=== PATIENT | male | born 1935 | race Caucasian/White ===

== ENCOUNTER 2023-03-23 19:24 | Inpatient (IN) | payer MEDICARE ==
[2023-03-23] MEDS ORDERED: FLU VACC QS2023(65UP)/MF59C/PF 60 MCG/0.5 ML SYRINGE IM ONE (21:30)
[2023-03-23] MEDS ORDERED: Dextrose 50% Abboject 50 ML SYRINGE SLOW IVP PRN (23:22)
[2023-03-23] MEDS ORDERED: Dextrose 5% in Water 1,000 ML IV PRN (23:22)
[2023-03-23] MEDS ORDERED: Glucagon 1 MG/ML KIT IM PRN (23:22)
[2023-03-23] MEDS ORDERED: HumaLOG 300 UNITS/3 ML VIAL SC PRN (23:22)
[2023-03-23] MEDS ORDERED: Potassium Chloride 20 MEQ TAB PO SCH (23:30)
[2023-03-23] MEDS ORDERED: Furosemide 40 MG/4 ML VIAL SLOW IVP SCH (23:30)
[2023-03-24 05:51] LABS: Hematocrit 22.4 % (38.8-50.0); Hemoglobin 7.3 g/dL (13.5-17.5); Mean Corpuscular HGB CONC 32.6 g/dL (32.0-36.0); Mean Corpuscular Hemoglobin 32.3 pg (27.0-33.0); Mean Corpuscular Volume 99.1 fl (81.2-95.1); Mean Platelet Volume 11.1 fl (7.4-10.4); Platelet Count 171 10x3/uL (150-450); RBC Distribution Width 21.2 % (11.5-14.5); Red Blood Cell (RBC) Count 2.26 10x6/uL (4.32-5.72); White Blood Cell (WBC) Count 3.3 10x3/uL (3.5-10.5)
[2023-03-24 05:57] LABS: Anion Gap 13 mmol/L (10-20); BUN (Urea Nitrogen) 28 mg/dL (8.4-25.7); Calc. Creatinine Clearance 82 mL/min (70-130); Calcium 8.4 mg/dL (7.8-10.44); Carbon Dioxide 30 mmol/L (23-31); Chloride 103 mmol/L (98-107); Estimated GFR 78; Glucose 131 mg/dL (83-110); Magnesium 1.7 mg/dL (1.6-2.6); Potassium 3.5 mmol/L (3.5-5.1); Sodium 142 mmol/L (136-145)
[2023-03-24 06:02] LABS: MDiff Complete? YES
[2023-03-24 06:11] LABS: Phosphorus 4.4 mg/dL (2.3-4.7)
[2023-03-24] MEDS: Furosemide 40 MG/4 ML VIAL SLOW IVP SCH ×2 (06:28→15:23)
[2023-03-24 07:02] LABS: Platelet Adequacy Comment Appears Adequate
[2023-03-24 07:03] LABS: Anisocytosis SLIGHT = 6-15 cells (100X) (0-5/hpf)
[2023-03-24 07:04] LABS: Macrocytosis SLIGHT = 6-15 cells (100X) (0-5/hpf); Microcytosis SLIGHT = 6-15 cells (100X) (0-5/hpf)
[2023-03-24 07:06] LABS: Band 2 % (5-11); Eosinophils 14 % (0-10); Lymphocytes 48 % (21-51); Monocytes 27 % (0-10); Neutrophil 9 % (42-75)
[2023-03-24] MEDS: Lisinopril 10 MG TAB PO SCH (08:40)
[2023-03-24] MEDS ORDERED: Metoprolol Tartrate 25 MG TAB PO SCH (09:00)
[2023-03-24] MEDS ORDERED: Magnesium Sulfate 4 GM in Sodium Chloride 0.9% 250 ML 250 ML IVPB SCH (09:00)
[2023-03-24] MEDS ORDERED: Calcitriol 0.25 MCG CAP PO SCH (09:00)
[2023-03-24] MEDS: Magnesium 2 GM/50 ML(in water) 2 GM in Premix 1 BAG IVPB SCH ×2 (11:57→14:06)
[2023-03-24] MEDS: Empagliflozin 10 MG TAB PO SCH (12:05)
[2023-03-24] MEDS: Acetaminophen 325 MG TAB PO PRN ×2 (16:49→21:47)
[2023-03-24] MEDS ORDERED: Carvedilol 6.25 MG TAB PO SCH (17:00)
[2023-03-24] MEDS: Terazosin HCl 1 MG CAP PO SCH (21:38)
[2023-03-24] MEDS ORDERED: Sodium Chloride 0.65% Nasal 44 ML BOT EA NARE PRN (23:12)
[2023-03-25 04:05] LABS: Hematocrit 20.1 % (38.8-50.0); Hemoglobin 6.6 g/dL (13.5-17.5); Platelet Count 154 10x3/uL (150-450)
[2023-03-25 04:07] LABS: Anion Gap 14 mmol/L (10-20); BUN (Urea Nitrogen) 31 mg/dL (8.4-25.7); Calc. Creatinine Clearance 75 mL/min (70-130); Carbon Dioxide 27 mmol/L (23-31); Chloride 101 mmol/L (98-107); Estimated GFR 72; Glucose 135 mg/dL (83-110); Magnesium 2.3 mg/dL (1.6-2.6); Potassium 3.6 mmol/L (3.5-5.1); Sodium 138 mmol/L (136-145)
[2023-03-25] MEDS: Furosemide 40 MG/4 ML VIAL SLOW IVP SCH ×2 (05:28→16:28)
[2023-03-25 08:04] LABS: Iron 33 ug/dL (65-175); Iron Binding Capacity, Total 260 mcg/dL (261-462)
[2023-03-25] MEDS: Lisinopril 10 MG TAB PO SCH (08:40)
[2023-03-25] MEDS: Empagliflozin 10 MG TAB PO SCH (08:40)
[2023-03-25] MEDS: Pantoprazole 40 MG VIAL IVP SCH ×3 (08:40→22:19)
[2023-03-25] MEDS: Folic Acid 1 MG TAB PO SCH (08:40)
[2023-03-25] MEDS: Potassium Chloride 20 MEQ TAB PO SCH (08:40)
[2023-03-25] MEDS ORDERED: Iron, Sodium Ferric Gluconate 125 MG in Sodium Chloride 0.9% 100 ML IVPB SCH (11:00)
[2023-03-25] MEDS: Terazosin HCl 1 MG CAP PO SCH ×2 (22:12→22:19)
[2023-03-26 03:40] VITALS: BMI 29.1
[2023-03-26] MEDS: Furosemide 40 MG/4 ML VIAL SLOW IVP SCH ×2 (05:58→14:29)
[2023-03-26] MEDS: Lisinopril 10 MG TAB PO SCH (08:55)
[2023-03-26] MEDS: Potassium Chloride 20 MEQ TAB PO SCH (08:55)
[2023-03-26] MEDS: Pantoprazole 40 MG VIAL IVP SCH ×2 (09:54→20:56)
[2023-03-26] MEDS: Folic Acid 1 MG TAB PO SCH (09:55)
[2023-03-26] MEDS: Empagliflozin 10 MG TAB PO SCH (09:55)
[2023-03-26] MEDS ORDERED: IRON SUCROSE COMPLEX 100 MG/5 ML SLOW IVP SCH (10:00)
[2023-03-26] MEDS ORDERED: Iron, Sodium Ferric Gluconate 125 MG in Sodium Chloride 0.9% 100 ML IVPB SCH (10:00)
[2023-03-26] MEDS: Terazosin HCl 1 MG CAP PO SCH (20:56)
[2023-03-27 04:45] LABS: Anion Gap 15 mmol/L (10-20); BUN (Urea Nitrogen) 29 mg/dL (8.4-25.7); Calc. Creatinine Clearance 84 mL/min (70-130); Calcium 8.3 mg/dL (7.8-10.44); Carbon Dioxide 28 mmol/L (23-31); Chloride 102 mmol/L (98-107); Estimated GFR 83; Glucose 120 mg/dL (83-110); Potassium 4.1 mmol/L (3.5-5.1); Sodium 141 mmol/L (136-145)
[2023-03-27 04:46] LABS: Hematocrit 26.7 % (38.8-50.0); Hemoglobin 8.7 g/dL (13.5-17.5); Mean Corpuscular HGB CONC 32.6 g/dL (32.0-36.0); Mean Corpuscular Hemoglobin 30.4 pg (27.0-33.0); Mean Corpuscular Volume 93.4 fl (81.2-95.1); Platelet Count 176 10x3/uL (150-450); Red Blood Cell (RBC) Count 2.86 10x6/uL (4.32-5.72); White Blood Cell (WBC) Count 2.8 10x3/uL (3.5-10.5)
[2023-03-27 04:58] LABS: MDiff Complete? YES
[2023-03-27 06:00] LABS: Band 1 % (5-11); Eosinophils 10 % (0-10); Lymphocytes 50 % (21-51); Monocytes 23 % (0-10); Neutrophil 16 % (42-75)
[2023-03-27 06:04] LABS: Anisocytosis SLIGHT = 6-15 cells (100X) (0-5/hpf); Macrocytosis SLIGHT = 6-15 cells (100X) (0-5/hpf); Microcytosis SLIGHT = 6-15 cells (100X) (0-5/hpf)
[2023-03-27 06:05] LABS: Platelet Adequacy Comment Appears Adequate
[2023-03-27] MEDS: Furosemide 40 MG/4 ML VIAL SLOW IVP SCH ×2 (06:44→14:16)
[2023-03-27] MEDS: Potassium Chloride 20 MEQ TAB PO SCH (08:35)
[2023-03-27] MEDS: Lisinopril 10 MG TAB PO SCH (08:35)
[2023-03-27] MEDS: Folic Acid 1 MG TAB PO SCH (08:35)
[2023-03-27] MEDS: Pantoprazole 40 MG VIAL IVP SCH (08:35)
[2023-03-27] MEDS: Empagliflozin 10 MG TAB PO SCH (08:36)
[2023-03-27] MEDS ORDERED: PHENYLEPHRINE-NS 100 MCG/ML 10 ML SYRINGE ONE (11:48)
[2023-03-27] MEDS ORDERED: PROPOFOL 20 ML ONE (11:48)
[2023-03-27] MEDS ORDERED: Lidocaine 2% MPF 10 ML AMP (For Epidural Use) ONE (11:50)
[2023-03-27] MEDS: Acetaminophen 325 MG TAB PO PRN (14:17)
[2023-03-27 16:53] VITALS: BP 146/79; TEMP 98.2
== END 2023-03-27 16:40 | disposition home or self-care (01) | DRG 811 ==
LOC: CSHTELE 20:40 → INTOOBSV 20:40 → OBSVTOIN 03-25 07:10
PROVIDERS: ADMIT Family Medicine; ATTEND Hospitalist
PROC: 30233N1 Transfusion of Nonautologous Red Blood Cells into Peripheral Vein, Percutaneous Approach (ICD-10-PCS; 2023-03-25)
PROC: 0DJ08ZZ Inspection of Upper Intestinal Tract, Via Natural or Artificial Opening Endoscopic (ICD-10-PCS; principal; 2023-03-27)
DX: D62 Acute posthemorrhagic anemia (principal); I50.23 Acute on chronic systolic (congestive) heart failure; C91.10 Chronic lymphocytic leukemia of B-cell type not having achieved remission; I48.11 Longstanding persistent atrial fibrillation; K92.1 Melena; I11.0 Hypertensive heart disease with heart failure; E11.9 Type 2 diabetes mellitus without complications; N40.1 Benign prostatic hyperplasia with lower urinary tract symptoms; R39.15 Urgency of urination; E78.5 Hyperlipidemia, unspecified; I35.0 Nonrheumatic aortic (valve) stenosis; D50.9 Iron deficiency anemia, unspecified; G47.33 Obstructive sleep apnea (adult) (pediatric); Z79.84 Long term (current) use of oral hypoglycemic drugs; Z79.899 Other long term (current) drug therapy; Z83.3 Family history of diabetes mellitus; Z86.39 Personal history of other endocrine, nutritional and metabolic disease
CPT/HCPCS: 36415; 36416; 36430; 80048; 82274; 83540; 83550; 83735; 84100; 84443; 85014; 85018; 85025; 85049; 86850; 86900; 86901; 93005; 93010; 93306; 94760; 96372; 96374; 96375; 96376; C9113; G0378; J1650; J1940; J2704; J2916; J3475; J3490; P9016

== ENCOUNTER 2023-06-04 14:41 | Inpatient (IN) | payer MEDICARE ==
[2023-06-04 15:57] LABS: Hematocrit 24.5 % (38.8-50.0); Mean Corpuscular HGB CONC 32.7 g/dL (32.0-36.0); Mean Corpuscular Hemoglobin 32.3 pg (27.0-33.0); Mean Corpuscular Volume 98.8 fl (81.2-95.1); Mean Platelet Volume 11.1 fl (7.4-10.4); Platelet Count 278 10x3/uL (150-450); RBC Distribution Width 16.6 % (11.5-14.5); Red Blood Cell (RBC) Count 2.48 10x6/uL (4.32-5.72); White Blood Cell (WBC) Count 5.2 10x3/uL (3.5-10.5)
[2023-06-04 16:00] LABS: ALT (SGPT) 9 U/L (8-55); AST (SGOT) 11 U/L (5-34); Albumin 2.9 g/dL (3.4-4.8); Alkaline Phosphatase 116 U/L (40-110); Anion Gap 10 mmol/L (10-20); BUN (Urea Nitrogen) 19 mg/dL (8.4-25.7); Bilirubin, Total 0.9 mg/dL (0.2-1.2); Calc. Creatinine Clearance 0 mL/min (70-130); Carbon Dioxide 30 mmol/L (23-31); Chloride 101 mmol/L (98-107); Estimated GFR 85; Glucose 126 mg/dL (83-110); Potassium 3.8 mmol/L (3.5-5.1); Protein, Total 5.9 g/dL (5.8-8.1); Sodium 137 mmol/L (136-145)
[2023-06-04] MEDS ORDERED: Cefepime 2 GM VIAL ONE (16:15)
[2023-06-04 16:19] LABS: MDiff Complete? YES
[2023-06-04 17:45] LABS: Eosinophils 1 % (0-10); Lymphocytes 31 % (21-51); Monocytes 13 % (0-10); Neutrophil 50 % (42-75); Reactive Lymphocytes 1 % (0-10)
[2023-06-04 17:49] LABS: Anisocytosis SLIGHT = 6-15 cells (100X) (0-5/hpf); Hypochromia SLIGHT = 6-15 cells (100X) (0-5/hpf); Microcytosis SLIGHT = 6-15 cells (100X) (0-5/hpf); Poikilocytosis SLIGHT = 6-15 cells (100X) (0-5/hpf); Polychromasia SLIGHT = 2-3 cells (100X) (0-2/hpf); Schistocytes SLIGHT = 2-5 cells (100X) (0-1/hpf); Tear Drops SLIGHT = 2-5 cells (100X) (0-1/hpf)
[2023-06-04 17:50] LABS: Platelet Adequacy Comment Appears Adequate; Reflex for Review?? YES; Smudge Cells SLIGHT; Toxic Granulation SLIGHT; Vacuoles SLIGHT
[2023-06-04] MEDS ORDERED: Ketorolac Tromethamine 30 MG (1 mL) VIAL ONE ×2 (19:06)
[2023-06-04] MEDS ORDERED: Dextrose 50% Abboject 50 ML SYRINGE SLOW IVP PRN (21:27)
[2023-06-04] MEDS ORDERED: Dextrose 5% in Water 1,000 ML IV PRN (21:27)
[2023-06-04] MEDS ORDERED: Glucagon 1 MG/ML KIT IM PRN (21:27)
[2023-06-04] MEDS ORDERED: HYDROcodone/Acetaminophen 5/325 mg Tablet PO PRN (21:28)
[2023-06-04] MEDS ORDERED: Senokot S 8.6-50 MG TAB PO PRN (21:28)
[2023-06-04] MEDS ORDERED: Ondansetron PF 4 MG/2 ML Vial IVP PRN (21:28)
[2023-06-04] MEDS ORDERED: Zolpidem Tartrate 5 MG TAB PO PRN (21:28)
[2023-06-04] MEDS: Vancomycin 1.5 GRAM/300 ML BAG 1.5 GM in Premix 1 BAG IVPB SCH (22:34)
[2023-06-05] MEDS: Albumin 25% 25 GM (100 mL) BOT IVPB SCH (00:01)
[2023-06-05] MEDS: Guaifenesin DM 100-10/5 ML UDCUP PO PRN (02:30)
[2023-06-05 03:58] LABS: Hematocrit 22.3 % (38.8-50.0); Mean Corpuscular HGB CONC 31.4 g/dL (32.0-36.0); Mean Corpuscular Hemoglobin 30.4 pg (27.0-33.0); Mean Platelet Volume 10.9 fl (7.4-10.4); Platelet Count 244 10x3/uL (150-450); RBC Distribution Width 16.6 % (11.5-14.5); White Blood Cell (WBC) Count 5.3 10x3/uL (3.5-10.5)
[2023-06-05 04:12] LABS: Anion Gap 12 mmol/L (10-20); BUN (Urea Nitrogen) 23 mg/dL (8.4-25.7); CRP (Inflammatory) 4.72 mg/dL (= or < 0.5); Calc. Creatinine Clearance 82 mL/min (70-130); Calcium 7.7 mg/dL (7.8-10.44); Carbon Dioxide 28 mmol/L (23-31); Chloride 100 mmol/L (98-107); Estimated GFR 83; Glucose 150 mg/dL (83-110); Iron 12 ug/dL (65-175); Iron Binding Capacity, Total 223 mcg/dL (261-462); Magnesium 2.1 mg/dL (1.6-2.6); Potassium 3.3 mmol/L (3.5-5.1); Sodium 137 mmol/L (136-145)
[2023-06-05 04:17] LABS: MDiff Complete? YES
[2023-06-05 04:26] LABS: Ferritin 403.23 ng/mL (22-322); Thyroid Stimulating Hormone 0.9073 uIU/mL (0.35-4.94)
[2023-06-05 04:32] LABS: Troponin I 0.031 ng/mL (< 0.028)
[2023-06-05 05:31] LABS: Band 2 % (5-11); Lymphocytes 37 % (21-51); Monocytes 7 % (0-10); Neutrophil 54 % (42-75)
[2023-06-05 05:38] LABS: Anisocytosis SLIGHT = 6-15 cells (100X) (0-5/hpf); Hypochromia SLIGHT = 6-15 cells (100X) (0-5/hpf); Macrocytosis SLIGHT = 6-15 cells (100X) (0-5/hpf); Microcytosis SLIGHT = 6-15 cells (100X) (0-5/hpf); Ovalocytes SLIGHT = 2-5 cells (100X) (0-1/hpf); Schistocytes SLIGHT = 2-5 cells (100X) (0-1/hpf)
[2023-06-05 05:39] LABS: Platelet Adequacy Comment Appears Adequate; Toxic Granulation SLIGHT; Vacuoles SLIGHT
[2023-06-05] MEDS: Furosemide 40 MG (4 mL) VIAL SLOW IVP SCH (05:50)
[2023-06-05] MEDS ORDERED: Metolazone 2.5 MG TAB PO SCH (09:00)
[2023-06-05] MEDS ORDERED: Enoxaparin 40 MG (0.4 mL) SYRINGE SC SCH (09:00)
[2023-06-05 09:13] LABS: Troponin I 0.025 ng/mL (< 0.028)
[2023-06-05] MEDS: Ferrous Sulfate 325 MG TAB PO SCH (09:14)
[2023-06-05] MEDS: Carvedilol 6.25 MG TAB PO SCH (09:14)
[2023-06-05] MEDS: Polyethylene Glycol 3350 17 GM Packet PO SCH (09:14)
[2023-06-05] MEDS: Multivitamin W/ Minerals 1 TAB PO SCH (09:14)
[2023-06-05] MEDS: cefTRIAXone\\ROCEPHIN 2 GM in Sodium Chloride 0.9% 100 ML IVPB SCH (09:15)
[2023-06-05] MEDS: Lisinopril 2.5 MG TAB PO SCH (09:15)
[2023-06-05] MEDS: Potassium Chloride 20 MEQ TAB PO SCH (09:15)
[2023-06-05] MEDS: Empagliflozin 10 MG TAB PO SCH (09:16)
[2023-06-05] MEDS: Folic Acid/Vit B Comp W-C PO SCH (09:17)
[2023-06-05] MEDS: Acetaminophen 325 MG TAB PO PRN (17:31)
[2023-06-05] MEDS: Enoxaparin 40 MG (0.4 mL) SYRINGE SC SCH (21:37)
[2023-06-06 04:17] LABS: ALT (SGPT) Less than 7 U/L (8-55); AST (SGOT) 8 U/L (5-34); Albumin 3.4 g/dL (3.4-4.8); Alkaline Phosphatase 91 U/L (40-110); Anion Gap 13 mmol/L (10-20); BUN (Urea Nitrogen) 24 mg/dL (8.4-25.7); Bilirubin, Direct 0.4 mg/dL (0.1-0.3); Bilirubin, Total 0.8 mg/dL (0.2-1.2); Calc. Creatinine Clearance 87 mL/min (70-130); Calcium 8.1 mg/dL (7.8-10.44); Carbon Dioxide 29 mmol/L (23-31); Chloride 100 mmol/L (98-107); Estimated GFR 84; Glucose 118 mg/dL (83-110); Potassium 2.9 mmol/L (3.5-5.1); Protein, Total 5.8 g/dL (5.8-8.1); Sodium 139 mmol/L (136-145)
[2023-06-06 04:55] LABS: Hematocrit 23.4 % (38.8-50.0); Hemoglobin 7.6 g/dL (13.5-17.5); Mean Corpuscular HGB CONC 32.5 g/dL (32.0-36.0); Mean Corpuscular Hemoglobin 31.3 pg (27.0-33.0); Mean Corpuscular Volume 96.3 fl (81.2-95.1); Mean Platelet Volume 11.3 fl (7.4-10.4); Platelet Count 226 10x3/uL (150-450); RBC Distribution Width 17.2 % (11.5-14.5); Red Blood Cell (RBC) Count 2.43 10x6/uL (4.32-5.72); White Blood Cell (WBC) Count 4.8 10x3/uL (3.5-10.5)
[2023-06-06 05:42] LABS: MDiff Complete? YES
[2023-06-06] MEDS: Potassium Chloride 20 MEQ TAB PO SCH (06:53)
[2023-06-06 06:59] LABS: Band 3 % (5-11); Eosinophils 6 % (0-10); Lymphocytes 19 % (21-51); Monocytes 16 % (0-10); Neutrophil 54 % (42-75)
[2023-06-06 07:03] LABS: Anisocytosis SLIGHT = 6-15 cells (100X) (0-5/hpf); Hypochromia SLIGHT = 6-15 cells (100X) (0-5/hpf); Macrocytosis SLIGHT = 6-15 cells (100X) (0-5/hpf); Microcytosis SLIGHT = 6-15 cells (100X) (0-5/hpf); Platelet Adequacy Comment Appears Adequate; Schistocytes SLIGHT = 2-5 cells (100X) (0-1/hpf); Vacuoles SLIGHT
[2023-06-06] MEDS: HumaLOG 300 UNITS/3 ML VIAL SC PRN (12:41)
[2023-06-06] MEDS: Ampicillin/Sulbactam 3 GM in Sodium Chloride 0.9% 100 ML IVPB SCH (17:24)
[2023-06-06 19:21] LABS: Anion Gap 9 mmol/L (10-20); BUN (Urea Nitrogen) 23 mg/dL (8.4-25.7); Calc. Creatinine Clearance 77 mL/min (70-130); Carbon Dioxide 32 mmol/L (23-31); Chloride 102 mmol/L (98-107); Estimated GFR 76; Glucose 188 mg/dL (83-110); Potassium 3.3 mmol/L (3.5-5.1); Sodium 140 mmol/L (136-145)
[2023-06-07 02:48] LABS: Hematocrit 25.8 % (38.8-50.0); Mean Corpuscular Hemoglobin 29.4 pg (27.0-33.0); Mean Corpuscular Volume 94.9 fl (81.2-95.1); Platelet Count 224 10x3/uL (150-450); RBC Distribution Width 17.2 % (11.5-14.5); Red Blood Cell (RBC) Count 2.72 10x6/uL (4.32-5.72); White Blood Cell (WBC) Count 4.2 10x3/uL (3.5-10.5)
[2023-06-07 03:03] LABS: Eosinophils 5 % (0-10); Lymphocytes 23 % (21-51); Monocytes 38 % (0-10); Neutrophil 33 % (42-75)
[2023-06-07 03:04] LABS: Anisocytosis MODERATE=16-30 cells (100X) (0-5/hpf); Platelet Adequacy Comment Appears Adequate; Tear Drops MODERATE= 6-15 cells (100X) (0-1/hpf)
[2023-06-07 03:07] LABS: MDiff Complete? YES
[2023-06-07 03:13] LABS: Anion Gap 10 mmol/L (10-20); BUN (Urea Nitrogen) 22 mg/dL (8.4-25.7); Calc. Creatinine Clearance 92 mL/min (70-130); Carbon Dioxide 32 mmol/L (23-31); Chloride 104 mmol/L (98-107); Estimated GFR 85; Glucose 143 mg/dL (83-110); Magnesium 2.1 mg/dL (1.6-2.6); Potassium 3.5 mmol/L (3.5-5.1); Sodium 142 mmol/L (136-145)
[2023-06-07] MEDS: Furosemide 40 MG (4 mL) VIAL SLOW IVP SCH (06:31)
[2023-06-07] MEDS: Calcium Carbonate 500 MG ChewTAB PO PRN (11:57)
[2023-06-07] MEDS ORDERED: Electrolyte Replacement Protocol FS SCH (23:15)
[2023-06-08 00:01] LABS: Anion Gap 11 mmol/L (10-20); BUN (Urea Nitrogen) 21 mg/dL (8.4-25.7); Calc. Creatinine Clearance 90 mL/min (70-130); Calcium 8.1 mg/dL (7.8-10.44); Carbon Dioxide 34 mmol/L (23-31); Chloride 102 mmol/L (98-107); Estimated GFR 85; Glucose 133 mg/dL (83-110); Potassium 3.8 mmol/L (3.5-5.1); Sodium 143 mmol/L (136-145)
[2023-06-08 00:08] LABS: Troponin I 0.015 ng/mL (< 0.028)
[2023-06-08 04:15] LABS: Hematocrit 25.4 % (38.8-50.0); Hemoglobin 7.9 g/dL (13.5-17.5); Mean Corpuscular HGB CONC 31.1 g/dL (32.0-36.0); Mean Corpuscular Volume 96.6 fl (81.2-95.1); Mean Platelet Volume 10.8 fl (7.4-10.4); Platelet Count 227 10x3/uL (150-450); Red Blood Cell (RBC) Count 2.63 10x6/uL (4.32-5.72); White Blood Cell (WBC) Count 4.5 10x3/uL (3.5-10.5)
[2023-06-08 04:37] LABS: Anion Gap 14 mmol/L (10-20); BUN (Urea Nitrogen) 21 mg/dL (8.4-25.7); Calc. Creatinine Clearance 94 mL/min (70-130); Calcium 8.1 mg/dL (7.8-10.44); Carbon Dioxide 31 mmol/L (23-31); Chloride 102 mmol/L (98-107); Estimated GFR 86; Glucose 139 mg/dL (83-110); Magnesium 1.9 mg/dL (1.6-2.6); Potassium 3.5 mmol/L (3.5-5.1); Sodium 143 mmol/L (136-145)
[2023-06-08 05:19] LABS: Eosinophils 6 % (0-10); Lymphocytes 24 % (21-51); Monocytes 22 % (0-10); Neutrophil 48 % (42-75)
[2023-06-08 05:20] LABS: Anisocytosis SLIGHT = 6-15 cells (100X) (0-5/hpf); Ovalocytes SLIGHT = 2-5 cells (100X) (0-1/hpf); Platelet Adequacy Comment Appears Adequate
[2023-06-08 05:25] LABS: MDiff Complete? YES
[2023-06-08] MEDS: Potassium Chloride 20 MEQ TAB PO SCH (09:03)
[2023-06-08] MEDS: Magnesium Oxide 400 MG TAB PO SCH (09:13)
[2023-06-08] MEDS: Aspirin 325 MG TAB PO SCH (12:06)
[2023-06-08] MEDS: Magnesium 2 GM/50 ML(in water) 2 GM in Premix 1 BAG IVPB SCH (16:53)
[2023-06-08] MEDS: Cefdinir 300 MG CAP PO SCH (20:30)
[2023-06-08] MEDS: Doxycycline 100 MG CAP PO SCH (20:30)
[2023-06-09 03:59] LABS: Anion Gap 9 mmol/L (10-20); BUN (Urea Nitrogen) 23 mg/dL (8.4-25.7); Calc. Creatinine Clearance 98 mL/min (70-130); Calcium 7.9 mg/dL (7.8-10.44); Carbon Dioxide 33 mmol/L (23-31); Chloride 103 mmol/L (98-107); Estimated GFR 88; Glucose 133 mg/dL (83-110); Hemoglobin 7.6 g/dL (13.5-17.5); Magnesium 2.1 mg/dL (1.6-2.6); Mean Corpuscular HGB CONC 31.7 g/dL (32.0-36.0); Mean Corpuscular Hemoglobin 30.5 pg (27.0-33.0); Mean Corpuscular Volume 96.4 fl (81.2-95.1); Mean Platelet Volume 11.2 fl (7.4-10.4); Platelet Count 209 10x3/uL (150-450); Potassium 3.7 mmol/L (3.5-5.1); RBC Distribution Width 16.8 % (11.5-14.5); Red Blood Cell (RBC) Count 2.49 10x6/uL (4.32-5.72); Sodium 141 mmol/L (136-145); White Blood Cell (WBC) Count 4.3 10x3/uL (3.5-10.5)
[2023-06-09 04:09] LABS: Phosphorus 3.3 mg/dL (2.3-4.7)
[2023-06-09 04:40] VITALS: BMI 28.0
[2023-06-09 05:04] LABS: Eosinophils 7 % (0-10); Lymphocytes 15 % (21-51); Monocytes 35 % (0-10); Neutrophil 41 % (42-75)
[2023-06-09 05:05] LABS: Anisocytosis SLIGHT = 6-15 cells (100X) (0-5/hpf); Ovalocytes SLIGHT = 2-5 cells (100X) (0-1/hpf); Platelet Adequacy Comment Appears Adequate
[2023-06-09 05:15] LABS: MDiff Complete? YES
[2023-06-09] MEDS: Potassium Chloride 20 MEQ TAB PO SCH (09:42)
[2023-06-09] MEDS: Lisinopril 5 MG TAB PO SCH (09:43)
[2023-06-09] MEDS: Carvedilol 12.5 MG TAB PO SCH (09:43)
[2023-06-09] MEDS: Furosemide 40 MG TAB PO SCH (09:43)
[2023-06-09 12:22] VITALS: BP 129/69; TEMP 98.3
== END 2023-06-09 15:08 | disposition home health service (06) | DRG 602 ==
LOC: CSHERS 14:41 → CSHTELE 19:04
PROVIDERS: ADMIT Internal Medicine; ATTEND Family Medicine
PROC: 30233N1 Transfusion of Nonautologous Red Blood Cells into Peripheral Vein, Percutaneous Approach (ICD-10-PCS; principal; 2023-06-05)
PROC: 30233J1 Transfusion of Nonautologous Serum Albumin into Peripheral Vein, Percutaneous Approach (ICD-10-PCS; 2023-06-05)
DX: L03.116 Cellulitis of left lower limb (principal); I50.23 Acute on chronic systolic (congestive) heart failure; J96.01 Acute respiratory failure with hypoxia; C91.10 Chronic lymphocytic leukemia of B-cell type not having achieved remission; I48.11 Longstanding persistent atrial fibrillation; I47.20 Ventricular tachycardia, unspecified; L03.115 Cellulitis of right lower limb; E11.9 Type 2 diabetes mellitus without complications; K21.9 Gastro-esophageal reflux disease without esophagitis; I11.0 Hypertensive heart disease with heart failure; I87.8 Other specified disorders of veins; E88.09 Other disorders of plasma-protein metabolism, not elsewhere classified; E83.42 Hypomagnesemia; I08.0 Rheumatic disorders of both mitral and aortic valves; I08.3 Combined rheumatic disorders of mitral, aortic and tricuspid valves; Z98.890 Other specified postprocedural states; Z79.899 Other long term (current) drug therapy
CPT/HCPCS: 36415; 36416; 36430; 71045; 80048; 80053; 80076; 82728; 83540; 83550; 83605; 83735; 83880; 84100; 84443; 84484; 85025; 85060; 86140; 86850; 86900; 86901; 87070; 87077; 87205; 93005; 93010; 93970; 94760; 94762; 96365; 96375; 97139; J0295; J0692; J0696; J1650; J1885; J1940; J3370; J3490; P9016; P9047

== ENCOUNTER 2023-10-07 07:30 | Emergency (ER) | payer MEDICARE ==
[2023-10-07 08:11] LABS: #Basophils 0.04 10x3/uL (0.0-0.2); #Eosinphils 0.07 10x3/uL (0.0-0.5); #Monocytes 1.49 10x3/uL (0.0-1.1); #Neutrophils 12.39 10x3/uL (1.5-8.4); %Basophils 0.2 % (0.0-2.0); %Eosinophils 0.4 % (0.0-6.0); %Lymphocytes 14.5 % (18.0-47.0); %Neutrophils 74.9 % (40.0-75.0); Hematocrit 27.7 % (38.8-50.0); Mean Corpuscular HGB CONC 32.5 g/dL (32.0-36.0); Mean Corpuscular Hemoglobin 25.3 pg (27.0-33.0); Mean Corpuscular Volume 77.8 fL (81.2-95.1); Mean Platelet Volume 9.4 fL (7.4-10.4); Platelet Count 383 10x3/uL (150-450); RBC Distribution Width 17.5 % (11.5-14.5); Red Blood Cell (RBC) Count 3.56 10x6/uL (4.32-5.72); White Blood Cell (WBC) Count 16.6 10x3/uL (3.5-10.5)
[2023-10-07] MEDS ORDERED: Piperacillin/Tazobactam 3.375 GM VIAL ONE (08:15)
[2023-10-07 08:28] LABS: ALT (SGPT) 7 U/L (8-55); AST (SGOT) 12 U/L (5-34); Albumin 1.9 g/dL (3.4-4.8); Alkaline Phosphatase 81 U/L (40-110); Anion Gap 11 mmol/L (10-20); BUN (Urea Nitrogen) 15 mg/dL (8.4-25.7); Bilirubin, Total 0.7 mg/dL (0.2-1.2); Calc. Creatinine Clearance 0 mL/min (70-130); Calcium 7.8 mg/dL (7.8-10.44); Carbon Dioxide 33 mmol/L (23-31); Chloride 89 mmol/L (98-107); Estimated GFR 93; Globulin 4.6 g/dL (2.4-3.5); Glucose 169 mg/dL (83-110); Potassium 2.9 mmol/L (3.5-5.1); Protein, Total 6.5 g/dL (5.8-8.1); Sodium 130 mmol/L (136-145)
[2023-10-07] MEDS ORDERED: Mineral Oil ENEMA ONE (09:34)
[2023-10-07] MEDS ORDERED: Potassium Bicarbonate/Cit Ac 20 MEQ TAB ONE (10:30)
[2023-10-07 11:50] LABS: Bilirubin Neg (Negative); Blood, Urine 25 (Negative); Glucose, Urine (Dipstick) 250 mg/dL (Negative); Ketone, Urine Negative (Negative); Leukocyte 500 (Negative); Nitrite Negative (Negative); Protein, Urine (Dipstick) 100 mg/dl (Neg-Trace)
[2023-10-07 11:57] LABS: Clarity Slightly Cloudy (Clear)
[2023-10-07 11:58] LABS: Bacteria/HPF 1+ HPF (None Seen); CAUTI Indications for Culture Dysuria,urgency,freq; Yeast-Budding 1+ HPF (None Seen); Yeast-Hyphae 1+ HPF (None Seen)
[2023-10-07 12:00] LABS: Urine Culture Reflex Yes Yes
== END 2023-10-07 17:56 | disposition short-term general hospital (02) ==
LOC: CSHERS 07:30
DX: N39.0 Urinary tract infection, site not specified (principal); K59.00 Constipation, unspecified; R53.1 Weakness; R62.7 Adult failure to thrive; E87.6 Hypokalemia; I11.0 Hypertensive heart disease with heart failure; I50.9 Heart failure, unspecified; E11.9 Type 2 diabetes mellitus without complications; I48.91 Unspecified atrial fibrillation; K21.9 Gastro-esophageal reflux disease without esophagitis; Z79.82 Long term (current) use of aspirin; Z79.899 Other long term (current) drug therapy
CPT/HCPCS: 74022; 80053; 81001; 83605; 85025; 87040; 87070; 87077; 87086; 87149 ×2; 87186; 87205; 93005; J2543; 36415; 96374